=== PATIENT | male | born 1960 | race Caucasian/White ===

== ENCOUNTER 2025-03-13 06:22 | Day surgery (SDC) | payer BC, SELFPAY | END 2025-03-13 15:22 | disposition home or self-care (01) | LOC: GI 06:22 | PROVIDERS: ATTENDING PHYSICIAN Internal Medicine Gastroenterology | DX: D12.0 Benign neoplasm of cecum (principal); D12.2 Benign neoplasm of ascending colon; D12.3 Benign neoplasm of transverse colon; D12.4 Benign neoplasm of descending colon; D12.5 Benign neoplasm of sigmoid colon; K57.30 Diverticulosis of large intestine without perforation or abscess without bleeding; R19.5 Other fecal abnormalities; K64.0 First degree hemorrhoids; K64.4 Residual hemorrhoidal skin tags; R12 Heartburn | CPT/HCPCS: 45385; 45380; 43235; 88305 ==

== ENCOUNTER → 2025-05-02 10:31 | Outpatient (REF) | payer BC, SELFPAY | LOC: RAD 10:31 | PROVIDERS: ATTENDING PHYSICIAN Nurse Practitioner Family | DX: R22.1 Localized swelling, mass and lump, neck (principal) | CPT/HCPCS: 76536 ==

== ENCOUNTER → 2025-06-04 09:09 | Outpatient (REF) | payer BC, SELFPAY | LOC: RAD 09:09 | PROVIDERS: ATTENDING PHYSICIAN Otolaryngology Facial Plastic Surgery; FAMILY PHYSICIAN Nurse Practitioner Family | DX: R22.1 Localized swelling, mass and lump, neck (principal); Q18.0 Sinus, fistula and cyst of branchial cleft | CPT/HCPCS: 70492; Q9967 ==